=== PATIENT | female | born 1960 | race Caucasian/White ===

== ENCOUNTER 2017-03-29 22:46 | Emergency (ER) | payer OTHER | END 2017-03-29 23:10 | disposition left against medical advice (07) | LOC: ER 22:46 | DX: Z53.21 Procedure and treatment not carried out due to patient leaving prior to being seen by health care provider (principal) ==

== ENCOUNTER → 2017-07-02 | Outpatient (CLI) | payer OTHER ==
--- NOTE | 2017-07-02 15:37 | RADIOLOGY REPORT (SQ) ---
EXAM DESCRIPTION: CT HEAD COMBO COMPLETED DATE/TIME: 07/02/2017 3:28 pm REASON FOR STUDY: G43.909 MIGRAINE, UNSP, NOT INTRACTABLE, WITHOUT STATUS MIGRAINOSUS G45.9 G43.909 MIGRAINE, UNSP, NOT INTRACTABLE, WITHOUT STATUS MIGR G45.9 TRANSIENT CEREBRAL ISCHEMIC ATTACK, UNSP ECIFIED R41.3 OTHER AMNESIA COMPARISON: None. TECHNIQUE: Axial images acquired through the brain without and with intravenous contrast. Images re viewed with bone, brain and subdural windows. Images stored on PACS. All CT scanners at this facility use dose modulation, iterative reconstruction, and/or weight based d osing when appropriate to reduce radiation dose to as low as reasonably achievable (ALARA). [facility]: Dose Right [facility]: CareDose [facility]: Dose Right [facility]: Teradose 4D [facility]: [facility] CONTRAST TYPE AND DOSE: contrast/concentration: Isovue 370.00 mg/ml; Total Contrast Delivered: 50.0 ml; Total Saline Delivered: 55.0 ml RENAL FUNCTION: GFR > 60. RADIATION DOSE: CT Rad equipment meets quality standard of care and radiation dose reduction techniq ues were employed. CTDIvol: 49.0 mGy. DLP: 1566 mGy-cm.. LIMITATIONS: None. FINDINGS: VENTRICLES: Normal size and contour. CEREBRUM: No masses. No hemorrhage. No midline shift. Normal wong/white matter differentiation. No ev idence for acute infarction. No enhancing lesions. CEREBELLUM: No masses. No hemorrhage. No alteration of density. No evidence for acute infarction. No enhancing lesions. EXTRA-AXIAL SPACES: No fluid collections. No enhancing lesions. ORBITS AND GLOBE: No intra- or extraconal masses. Normal contour of globe without masses. CALVARIUM: No fracture. PARANASAL SINUSES: No fluid or mucosal thickening. SOFT TISSUES: No mass or hematoma. OTHER: No other significant finding. IMPRESSION: NORMAL BRAIN CT WITHOUT AND WITH CONTRAST. EVIDENCE OF ACUTE STROKE: NO. TECHNICAL DOCUMENTATION: JOB ID: [id number] Quality ID # [id number]: Final reports with documentation of one or more dose reduction techniques (e.g., Au tomated exposure control, adjustment of the mA and/or kV according to patient size, use of iterative reconstruction technique) 2010 [employer]- All Rights Reserved
--- NOTE | 2017-07-02 16:56 | RADIOLOGY REPORT (SQ) ---
EXAM DESCRIPTION: CAROTID DOPPLER COMPLETED DATE/TIME: 07/02/2017 4:27 pm REASON FOR STUDY: MIGRAINE, TIA G43.909 MIGRAINE, UNSP, NOT INTRACTABLE, WITHOUT STATUS MIGR G45.9 TRANSIENT CEREBRAL ISCHEMIC ATTACK, UNSPECIFIED R41.3 OTHER AMNESIA COMPARISON: CT brain 07/02/2017 TECHNIQUE: Grayscale ultrasound, Doppler velocity and spectra, and color Doppler images acquired of the extra-cranial carotid and vertebral arteries. Images stored on PACS. LIMITATIONS: None. FINDINGS: RIGHT CAROTID CCA Velocities: Within normal limits. ICA Velocities Peak systolic 1.0 m/s. End diastolic 0.27 m/s. Proximal ICA/CCA peak systolic ratio 1.1. Minimal calcific plaque at the right carotid bifurcation without flow significant stenosis LEFT CAROTID CCA Velocities: Within normal limits. ICA Velocities Peak systolic 1.0 m/s. End diastolic 0.26 m/s. Proximal ICA/CCA peak systolic ratio 1.0. Minimal calcific plaque at the left carotid bifurcation without flow significant stenosis. VERTEBRAL ARTERIES: Antegrade flow. Normal waveforms. SUBCLAVIAN ARTERIES: Not evaluated OTHER: No other significant finding. IMPRESSION: NO HEMODYNAMICALLY SIGNIFICANT STENOSIS. COMMENT: Quality ID #[id number]: Velocity criteria are extrapolated from the diameter data as defined by t he Society of Radiologists in Ultrasound Consensus Conference. Radiology 2003: 229; 340-346. TECHNICAL DOCUMENTATION: JOB ID: [id number]- All Rights Reserved
== END ==
LOC: RAD 15:08
PROVIDERS: ATTEND Specialist
DX: G43.909 Migraine, unspecified, not intractable, without status migrainosus (principal); G45.9 Transient cerebral ischemic attack, unspecified; R41.3 Other amnesia
CPT/HCPCS: 70470; 93880

== ENCOUNTER 2017-12-03 18:13 | Emergency (ER) | payer SELFPAY ==
[2017-12-03 18:30] LABS: ABSOLUTE EOSINOPHILS # (AUTO) 0.1 10^3/uL (0.0-0.6); ABSOLUTE LYMPHOCYTES (AUTO) 2.9 10^3/uL (0.5-4.7); ABSOLUTE MONOCYTES (AUTO) 0.4 10^3/uL (0.1-1.4); ABSOLUTE NEUT (AUTO) 3.7 10^3/uL (1.7-8.2); BASOPHILS % (AUTO) 0.5 % (0-2); HEMATOCRIT 39.5 % (36.0-47.0); HEMOGLOBIN 12.8 g/dL (12.0-15.5); LYMPHOCYTES % (AUTO) 40.5 % (13-45); MEAN CORPUSCULAR HEMOGLOBIN 24.3 pg (27.0-33.4); MEAN CORPUSCULAR HGB CONC 32.3 g/dL (32.0-36.0); MEAN CORPUSCULAR VOLUME 75 fl (80-97); PLATELET COUNT 263 10^3/uL (150-450); RED BLOOD COUNT 5.24 10^6/uL (3.72-5.28); RED CELL DISTRIBUTION WIDTH 16.8 % (11.5-14.0); TOTAL CELLS COUNTED % (AUTO) 100 %; WHITE BLOOD COUNT 7.2 10^3/uL (4.0-10.5)
[2017-12-03 18:36] LABS: INTERNATIONAL RATION (INR) 0.85
[2017-12-03 18:37] LABS: PARTIAL THROMBOPLASTIN TIME 24.4 SEC (23.5-35.8)
[2017-12-03 18:39] LABS: PROTHROMBIN TIME 12.1 SEC (11.4-15.4)
[2017-12-03 18:45] LABS: ALANINE AMINOTRANSFERASE 24 U/L (9-52); ALBUMIN 4.4 g/dL (3.5-5.0); ALKALINE PHOSPHATASE 70 U/L (38-126); ANION GAP 14 (5-19); ASPARTATE AMINO TRANSFERASE 29 U/L (14-36); BILIRUBIN,DIRECT 0.5 mg/dL (0.0-0.4); BILIRUBIN,TOTAL 0.5 mg/dL (0.2-1.3); BLOOD UREA NITROGEN 16 mg/dL (7-20); CALCIUM 10.6 mg/dL (8.4-10.2); CARBON DIOXIDE 24 mmol/L (22-30); CHLORIDE 104 mmol/L (98-107); CREATINE KINASE 126 U/L (30-135); GLUCOSE 195 mg/dL (75-110); POTASSIUM 5.7 mmol/L (3.6-5.0); SODIUM 142.2 mmol/L (137-145); TOTAL PROTEIN 7.5 g/dL (6.3-8.2)
--- NOTE | 2017-12-03 18:45 | ER Document Report ---
ED General - General Chief Complaint: S/S of Possible Stroke Stated Complaint: POSSIBLE STROKE SYMPTOMS Time Seen by Provider: 12/03/17 18:19 Mode of Arrival: Medic Information source: Patient, Relative, Emergency Med Personnel Notes: 56-year-old female with hypertension, hyperlipidemia, type 2 diabetes and previous CVA in 2001 presents with complaint of headache and left sided facial numbness, left arm numbness, left leg numbness that occurred 2 hours prior to arrival. Patient states that she has these episodes frequently. Last episode was 3 weeks prior to arrival. She denies any recent illnesses. She has no physical complaints at this time. Patient does take Plavix. TRAVEL OUTSIDE OF THE [place] IN LAST 30 DAYS: No - HPI Onset: Just prior to arrival Onset/Duration: Gradual Quality of pain: No pain Associated symptoms: None Exacerbated by: Denies Relieved by: Denies Similar symptoms previously: Yes Recently seen / treated by doctor: No - Related Data Allergies/Adverse Reactions: codeine [Codeine] Allergy (Verified 12/03/17 18:16) Nausea oxycodone [Oxycodone] Allergy (Verified 12/03/17 18:16) Nausea Sulfa (Sulfonamide Antibiotics) Allergy (Verified 12/03/17 18:16) rash Past Medical History - General Information source: Patient - Social History Smoking Status: Former Smoker Frequency of alcohol use: None Drug Abuse: None Lives with: Family Family History: Reviewed & Not Pertinent Patient has suicidal ideation: No Patient has homicidal ideation: No - Past Medical History Cardiac Medical History: Reports: Hx Hypercholesterolemia, Hx Hypertension Denies: Hx Coronary Artery Disease, Hx Heart Attack Pulmonary Medical History: Reports: Hx Bronchitis, Hx Pneumonia Denies: Hx Asthma, Hx COPD, Hx Tuberculosis Neurological Medical History: Reports: Hx Cerebrovascular Accident - 2001. Denies: Hx Seizures Endocrine Medical History: Reports: Hx Diabetes 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, Hx Hypothyroidism GI Medical History: Reports: Hx Gastroesophageal Reflux Disease Musculoskeltal Medical History: Reports Hx Arthritis Psychiatric Medical History: Reports: Hx Depression Past Surgical History: Reports: Hx Section, Hx Cholecystectomy, Hx Nose Surgery, Hx Tonsillectomy. Denies: Hx Pacemaker - Immunizations Hx Diphtheria, Pertussis, Tetanus Vaccination: Yes Review of Systems - Review of Systems Notes: REVIEW OF SYSTEMS: CONSTITUTIONAL : Denies fever, chills, or sweats. Denies recent illness. Denies weight loss, recent hospitalizations. EENT: Denies visula changes, eye pain. Denies nasal or sinus congestion or discharge. Denies sore throat, oral lesions, difficulty swallowing. CARDIOVASCULAR: Denies chest pain. Denies palpitations or racing or irregular heart beat. Denies lower extremity edema. RESPIRATORY: Denies cough, cold, or chest congestion. Denies shortness of breath, difficulty breathing, or wheezing. GASTROINTESTINAL: Denies abdominal pain or distention. Denies nausea, vomiting , or diarrhea. Denies blood in vomitus, stools, or per rectum. Denies black, tarry stools. Denies constipation. GENITOURINARY: Denies difficulty urinating, painful urination, burning, frequency, blood in urine, or vaginal discharge. MUSCULOSKELETAL: Denies back or neck pain or stiffness. Denies joint pain or swelling. SKIN: Denies rash, lesions or sores. HEMATOLOGIC : Denies easy bruising or bleeding. LYMPHATIC: Denies swollen, enlarged glands. NEUROLOGICAL: Denies confusion or altered mental status. Denies passing out or loss of consciousness. Denies dizziness or lightheadedness. Denies headache. Denies weakness or paralysis or loss of use of either side. Denies problems with gait or speech. Minutes to sensory loss, numbness, and tingling. Denies seizures. PSYCHIATRIC: Denies anxiety or stress. Denies depression, suicidal ideation, or homicidal ideation. Physical Exam - Vital signs Vitals: Pulse Resp BP Pulse Ox 94 11 L 154/81 H 97 12/03/17 18:14 12/03/17 18:14 12/03/17 18:14 12/03/17 18:14 - Notes Notes: PHYSICAL EXAMINATION: GENERAL: Well-appearing, well-nourished and in no acute distress. HEAD: Atraumatic, normocephalic. EYES: Pupils equal round and reactive to light, extraocular movements intact, conjunctiva are normal. ENT: Nares patent, oropharynx clear without exudates. Moist mucous membranes. NECK: Normal range of motion, supple without lymphadenopathy LUNGS: Breath sounds clear to auscultation bilaterally and equal. No wheezes rales or rhonchi. HEART: Regular rate and rhythm without murmurs ABDOMEN: Soft, nontender, nondistended abdomen. No guarding, no rebound. No masses appreciated. Female : deferred Musculoskeletal: Normal range of motion, no pitting or edema. No cyanosis. NEUROLOGICAL: Cranial nerves grossly intact. Normal speech, normal gait. Decreased sensation of the side of the face and left upper extremity. NIH 1 for mild sensory loss. PSYCH: Normal mood, normal affect. SKIN: Warm, Dry, normal turgor, no rashes or lesions noted. Course - Re-evaluation Re-evalutation: 12/04/17 00:16 Laboratory 12/03/17 12/03/17 12/03/17 18:20 18:20 18:20 WBC 7.2 RBC 5.24 Hgb 12.8 Hct 39.5 MCV 75 L MCH 24.3 L MCHC 32.3 RDW 16.8 H Plt Count 263 Seg Neutrophils % 51.0 Lymphocytes % 40.5 Monocytes % 6.0 Eosinophils % 2.0 Basophils % 0.5 Absolute Neutrophils 3.7 Absolute Lymphocytes 2.9 Absolute Monocytes 0.4 Absolute Eosinophils 0.1 Absolute Basophils 0.0 PT 12.1 INR 0.85 APTT 24.4 Sodium 142.2 Potassium 5.7 H Chloride 104 Carbon Dioxide 24 Anion Gap 14 BUN 16 Creatinine 0.71 Est GFR ( Amer) > 60 Est GFR (Non-Af Amer) > 60 Glucose 195 H POC Glucose Calcium 10.6 H Total Bilirubin 0.5 Direct Bilirubin 0.5 H Neonat Total Bilirubin Not Reportable Neonat Direct Bilirubin Not Reportable Neonat Indirect Bili Not Reportable AST 29 ALT 24 Alkaline Phosphatase 70 Creatine Kinase 126 CK-MB (CK-2) Troponin I Total Protein 7.5 Albumin 4.4 12/03/17 12/03/17 18:20 18:37 WBC RBC Hgb Hct MCV MCH MCHC RDW Plt Count Seg Neutrophils % Lymphocytes % Monocytes % Eosinophils % Basophils % Absolute Neutrophils Absolute Lymphocytes Absolute Monocytes Absolute Eosinophils Absolute Basophils PT INR APTT Sodium Potassium Chloride Carbon Dioxide Anion Gap BUN Creatinine Est GFR ( Amer) Est GFR (Non-Af Amer) Glucose POC Glucose 165 H Calcium Total Bilirubin Direct Bilirubin Neonat Total Bilirubin Neonat Direct Bilirubin Neonat Indirect Bili AST ALT Alkaline Phosphatase Creatine Kinase CK-MB (CK-2) 1.15 Troponin I < 0.012 Total Protein Albumin Chest X-Ray 12/03/17 18:15 IMPRESSION: NO ACUTE RADIOGRAPHIC FINDING IN THE CHEST. Head CT 12/03/17 18:15 IMPRESSION: NORMAL BRAIN CT WITHOUT CONTRAST. EVIDENCE OF ACUTE STROKE: NO. Head MRI 12/03/17 18:42 IMPRESSION: NORMAL MRI OF THE BRAIN WITHOUT INTRAVENOUS GADOLINIUM CONTRAST. EVIDENCE OF ACUTE STROKE: NO. 56-year-old female presents with complaint of headache and left-sided facial, arm and leg paresthesias. Upon arrival vital signs reviewed and within normal meds. Patient does not appear toxic or dehydrated. She is in no acute distress. NIH was performed and 1 for reported decreased sensation. CT was obtained and showed no acute process. MRI was obtained and also showed no evidence of stroke. On reevaluation patient states headache and numbness have resolved. Patient is currently on Plavix, aspirin and does have neurology follow-up. Patient was found to have a potassium of 5.7. No associated EKG changes. Patient was administered insulin, dextrose and calcium during her ED course. IV fluids and Tylenol were administered. Repeat potassium pending. 12/04/17 00:17 12/04/17 00:39 Repeat EKG obtained and shows no peak T waves, normal QRS. QTC within normal limits. 12/04/17 00:52 Repeat potassium now within normal limits. Patient is symptom-free and comfortable with discharge home. Patient provided the opportunity to ask questions, and express concerns. Discharge instructions discussed. Patient is agreeable with discharge home. Return indications explained and discussed with the patient who displays understanding. Patient encouraged to return to the emergency department immediately with any concerns. - Vital Signs Vital signs: Temp Pulse Resp BP Pulse Ox 81 18 138/78 H 96 12/03/17 21:00 12/03/17 21:00 12/03/17 23:55 12/03/17 23:55 - Laboratory Result Diagrams: 12/03/17 18:20 12/04/17 00:15 Laboratory results interpreted by me: 12/03/17 12/03/17 12/03/17 18:20 18:20 18:37 MCV 75 L MCH 24.3 L RDW 16.8 H Potassium 5.7 H Glucose 195 H POC Glucose 165 H Calcium 10.6 H Direct Bilirubin 0.5 H - Diagnostic Test Radiology reviewed: Image reviewed, Reports reviewed Discharge - Discharge Clinical Impression: Arm paresthesia, left, Leg paresthesia, Hyperkalemia Headache Qualifiers: Headache type: unspecified Headache chronicity pattern: episodic headache Intractability: not intractable Qualified Code(s): R51 - Headache Condition: Good Disposition: HOME, SELF-CARE Instructions: Headache ([facility]), Numbness or Paresthesia ([facility]) Additional Instructions: Please follow-up with your neurologist in the next 3-5 days. Forms: Elevated Blood Pressure ED NIH Stroke Scale - NIH Stroke Scale When completed:: Before Alteplase *: 1. NIH scale should be completed with appropriate accompanying assessment tools. *: 2. The NIH should reflect what the patient is capable of doing and should not be coached by the clinician. 1a. Level of Consciousness: 0=Alert;keenly responsive -: 1=Drowsy -: 2=Obtunded -: 3=Coma/unresponsive or reflex to noxious stimuli. 1a. Responses: 0 1b. Orientation Questions: a. What month is it? -: b. How old are you? -: 0=Answers both questions correctly. -: 1=Answers one question correctly or patient is intubated or has orotracheal trauma. -: 2=Answers neither question correctly. 1b. Responses: 0 1c. Response to commands: a. Open and close eyes? -: b. Hydraulic Mechanic and release hand? -: Credit is given despite weakness. Demonstration of task is permitted. Substitute command if hands cannot be used. -: 0=Performs both tasks correctly -: 1=Performs one task correctly -: 2=Performs neither task correctly 1c. Responses: 0 2. Gaze: Establish eye contact and instruct patient to "Follow my finger" -: 0=Normal -: 1=Partial gaze palsy. Gaze is abnormal in one or both eyes, but where forced deviation or total gaze paresis is not present. -: 2=Forced deviation or total gaze paresis. 2. Responses: 0 3. Visual Cordero: Sees fingers in all four quadrants. -: 0=No visual loss. -: 1=Partial hemianopsia. -: 2=Complete hemianopsia. -: 3=Bilateral hemianopsia (including Cortical blindness) 3. Responses: 0 4. Facial Movement: Instruct patient to: -: a. Show me your teeth -: b. Raise your eyebrows -: c. Close your eyes -: d. Smile -: 0=Normal symmetrical movement -: 1=Minor paralysis (flattened nasolabial fold, asymmetry on smiling). -: 2=Partial paralysis (total or near total paralysis of lower face). -: 3=Complete paralysis of upper and lower face 4. Responses: 0 5. Motor functions (left arm): Alternate sides and extend each arm with palms down (90 degrees if sitting or 45 degrees for supine). -: 0=No drift;limb holds for full 10 seconds. -: 1=Drift; limb holds but drifts down before full 10 seconds, but does not hit bed. -: 2=Some effort against gravity; limb cannot get to or maintain position. -: 3=No effort against gravity; limb falls. -: 4=No movement. -: UN=Amputation, joint fusion, explain in comments. 5. Responses (left arm): 0 5. Motor Functions (right arm): Alternate sides and extend each arm with palms down (90 degrees if sitting or 45 degrees for supine). -: 0=No drift;limb holds for full 10 seconds. -: 1=Drift; limb holds but drifts down before full 10 seconds, but does not hit bed. -: 2=Some effort against gravity; limb cannot get to or maintain position. -: 3=No effort against gravity; limb falls. -: 4=No movement. -: UN=Amputation, joint fusion, explain in comments. 5. Responses (right arm): 0 6. Motor Functions (left leg): With patient lying supine, alternate sides and extend each leg (30 degrees always while supine). -: 0=No drift, leg holds position for full 5 seconds -: 1=Drift; leg falls before full 5 seconds but does not hit bed. -: 2=Some effort against gravity, leg falls to bed but some effort against gravity. -: 3=No effort against gravity, leg falls to bed immediately. -: 4=No movement. -: UN=Amputation, joint fusion; explain in comments. 6. Responses (left leg): 0 6. Motor Functions (right leg): With patient lying supine, alternate sides and extend each leg (30 degrees always while supine). -: 0=No drift, leg holds position for full 5 seconds -: 1=Drift; leg falls before full 5 seconds but does not hit bed. -: 2=Some effort against gravity, leg falls to bed but some effort against gravity. -: 3=No effort against gravity, leg falls to bed immediately. -: 4=No movement. -: UN=Amputation, joint fusion; explain in comments. 6. Responses (right leg): 0 7. Limb Ataxia: With eyes open instruct patient to: -: a. "Touch your finger to your nose". -: b. "Touch your heel to your archer" -: 0=Absent -: 1=Present in one limb. -: 2=Present in two limbs. -: UN=Amputation or joint fusion; explain in comments. 7. Responses: 0 8. Sensory: Test sensation using pinprick or noxious stimuli. Test as many body parts as possible. -: 0=Normal;no sensory loss -: 1=Mile to moderate sensory loss (patient feels pin prick but is less sharp on affected side). -: 2=Severe or total sensory loss. 8. Responses: 1 9. Best Language: Instruct patient to: -: a. "Describe what you see in this picture." -: b. "Name the items in this picture." -: c. "Read these sentences." -: 0=No aphasia, normal -: 1=Mild to moderate aphasia. -: 2=Severe aphasia -: 3=Mute, global aphasia, no usable speech or auditory comprehension. 9. Responses: 0 10. Articulation, Dysarthia: Instruct patient to: -: "Read these words" or "Repeat these words" -: 0=Normal -: 1=Mild to moderate; patient may slur some words but can be understood without difficulty. -: 2=Severe; patients speech so slurred as to be unintelligible in the absence of dysphasia. -: UN=Intubated or other physical barrier, explain in comments. 10. Responses: 0 11. Extinction or inattention: 0=No abnormality -: 1= Visual, tactile, auditory, spatial, or personal inattention or extinction to bilateral simulation in one or the sensory modalities. -: 2=Profound marylu-inattention or marylu-inattention to more than one modality; does not recognize own hand. 11. Responses: 0 Total Score: 1
--- NOTE | 2017-12-03 18:49 | RADIOLOGY REPORT (SQ) ---
EXAM DESCRIPTION: CT HEAD WITHOUT COMPLETED DATE/TIME: 12/03/2017 6:21 pm REASON FOR STUDY: bed 9 stroke alert COMPARISON: 07/02/2017 TECHNIQUE: Axial images acquired through the brain without intravenous contrast. Images reviewed wi th bone, brain and subdural windows. Additional sagittal and coronal reconstructions were generated. Images stored on PACS. All CT scanners at this facility use dose modulation, iterative reconstruction, and/or weight based d osing when appropriate to reduce radiation dose to as low as reasonably achievable (ALARA). [facility]: Dose Right [facility]: CareDose [facility]: Dose Right [facility]: Teradose 4D [facility]: Smart Waze RADIATION DOSE: CT Rad equipment meets quality standard of care and radiation dose reduction techniq ues were employed. CTDIvol: 53.2 mGy. DLP: 937 mGy-cm. mGy. LIMITATIONS: None. FINDINGS: VENTRICLES: Normal size and contour. CEREBRUM: No masses. No hemorrhage. No midline shift. No evidence for acute infarction. Normal gra y/white matter differentiation. No areas of low density in the white matter. CEREBELLUM: No masses. No hemorrhage. No alteration of density. No evidence for acute infarction. EXTRAAXIAL SPACES: No fluid collections. No masses. ORBITS AND GLOBE: No intra- or extraconal masses. Normal contour of globe without masses. CALVARIUM: No fracture. PARANASAL SINUSES: No fluid or mucosal thickening. SOFT TISSUES: No mass or hematoma. OTHER: No other significant finding. IMPRESSION: NORMAL BRAIN CT WITHOUT CONTRAST. EVIDENCE OF ACUTE STROKE: NO. COMMENT: Findings were discussed with the ordering physician at 1843 hours on this date. Quality ID # [id number]: Final reports with documentation of one or more dose reduction techniques (e.g., Au tomated exposure control, adjustment of the mA and/or kV according to patient size, use of iterative reconstruction technique) TECHNICAL DOCUMENTATION: JOB ID: [id number] [employer]- All Rights Reserved Reading location - IP/workstation name: [email or web address]
[2017-12-03 18:56] LABS: CREATINE KINASE MB 1.15 ng/mL (<4.55)
[2017-12-03 18:58] LABS: TROPONIN I < 0.012 ng/mL
--- NOTE | 2017-12-03 19:08 | RADIOLOGY REPORT (SQ) ---
EXAM DESCRIPTION: CHEST SINGLE VIEW COMPLETED DATE/TIME: 12/03/2017 6:38 pm REASON FOR STUDY: bed 9 stroke alert COMPARISON: 09/17/2012 EXAM PARAMETERS: NUMBER OF VIEWS: One view. TECHNIQUE: Single frontal radiographic view of the chest acquired. RADIATION DOSE: NA LIMITATIONS: None. FINDINGS: LUNGS AND PLEURA: No opacities, masses or pneumothorax. No pleural effusion. MEDIASTINUM AND HILAR STRUCTURES: No masses. Contour normal. HEART AND VASCULAR STRUCTURES: Heart normal in size. Normal vasculature. BONES: No acute findings. HARDWARE: None in the chest. OTHER: No other significant finding. IMPRESSION: NO ACUTE RADIOGRAPHIC FINDING IN THE CHEST. TECHNICAL DOCUMENTATION: JOB ID: [id number] [employer]- All Rights Reserved Reading location - IP/workstation name: [email or web address]
--- NOTE | 2017-12-03 22:03 | RADIOLOGY REPORT (SQ) ---
EXAM DESCRIPTION: MRI HEAD WITHOUT COMPLETED DATE/TIME: 12/03/2017 9:51 pm REASON FOR STUDY: left sided paresthesias COMPARISON: None. TECHNIQUE: Multiplanar imaging includes non-contrasted T1, T2, FLAIR, and diffusion with ADC map seq uences. Images stored on PACS. LIMITATIONS: None. FINDINGS: ANATOMY: No anomalies. Normal vascular flow voids. Pituitary fossa normal. CSF SPACES: Normal in size and contour. No hemorrhage. CEREBRUM: Sulci and gyri normal in size and contour. Normal white matter signal on FLAIR imaging. No evidence of hemorrhage, mass, or extraaxial fluid collection. POSTERIOR FOSSA: No signal alteration. No hemorrhage. No edema, masses or mass effect. Internal joselin tory canals, cerebello-pontine angles, mastoids normal. DIFFUSION IMAGING: Negative for acute or sub-acute infarction. ORBITS: No masses. Globes normal. PARANASAL SINUSES: No fluid levels. Mucosa normal. OTHER: No other significant finding. IMPRESSION: NORMAL MRI OF THE BRAIN WITHOUT INTRAVENOUS GADOLINIUM CONTRAST. EVIDENCE OF ACUTE STROKE: NO. TECHNICAL DOCUMENTATION: JOB ID: [id number] [employer]- All Rights Reserved Reading location - IP/workstation name: [email or web address]
[2017-12-03] MEDS ORDERED: ACETAMINOPHEN 325 MG TABLET PO ONE (22:09)
[2017-12-03] MEDS ORDERED: CALCIUM GLUCONATE 1000 MG/10 ML INJ IV ONE (22:16)
[2017-12-03] MEDS ORDERED: DEXTROSE 50%-WATER 25 GM/50 ML DISP.SYRIN IV ONE (22:16)
[2017-12-03] MEDS ORDERED: INSULIN REG, HUMAN 100 UNIT/ML 3 ML VIAL (PYX) IV ONE (22:16)
[2017-12-03] MEDS ORDERED: NORMAL SALINE 1000 ML 1,000 ML IV ONE (22:22)
[2017-12-04 02:03] VITALS: BP 119/73
--- NOTE | 2017-12-04 07:43 | EKG REPORT ---
SEVERITY:- ABNORMAL ECG - SINUS RHYTHM INFERIOR INFARCT, AGE INDETERMINATE : Confirmed by: Rufus Ruiz MD 04-Dec-2017 07:43:08
--- NOTE | 2017-12-04 07:43 | EKG REPORT ---
SEVERITY:- NORMAL ECG - SINUS RHYTHM : Confirmed by: Rufus Ruiz MD 04-Dec-2017 07:42:47
== END 2017-12-04 02:05 | disposition home or self-care (01) ==
LOC: ER 18:13
DX: R51 Headache (principal); R20.0 Anesthesia of skin; E87.5 Hyperkalemia; I10 Essential (primary) hypertension; E78.5 Hyperlipidemia, unspecified; E11.9 Type 2 diabetes mellitus without complications; Z86.73 Personal history of transient ischemic attack (TIA), and cerebral infarction without residual deficits; Z87.891 Personal history of nicotine dependence; Z79.4 Long term (current) use of insulin; Z79.84 Long term (current) use of oral hypoglycemic drugs; R29.701 NIHSS score 1
CPT/HCPCS: 93005 ×2; 99285; 96375; 96365; 36415; 82553; 82962; 82550; 84132; 85025; 85610; 85730; 80053; 84484; 70551; 71045; 70450; 93010 ×2; J0610; J3490; J1815; J7030

== ENCOUNTER → 2019-10-27 | Outpatient (CLI) | payer OTHER ==
--- NOTE | 2019-10-27 15:05 | ER RDC ASSESSMENT REPORT ---
Intake - In the Last 14 days Have you traveled outside [place]?: No Have you been in close contact with someone CONFIRMED: No Worked in Healthcare?: No - Symptoms Subjective Fever([place] feverish): No Chills: No Muscule Aches: No Runny Nose: Yes Sore Throat: Yes Cough (New or worsening chronic cough): Yes Shortness of breath: Yes Nausea or Vomiting: No --How many day(s)?: History of nausea and vomiting takes Zofran Headache: Yes Abdominal Pain: Yes Diarrhea(3 or more loose stools in last 24 hours): No - Do you have any of the following Chronic lung disease: Asthma or emphysema or COPD: Yes Chronic Lung Disease Comment: Patient reports had been diagnosed with tuberculosis this past summer Cystic Fibrosis: No Diabetes: Yes High Blood Pressure: Yes Cardiovascular Disease: Yes Chronic Kidney Disease: No Chronic Liver Disease: No Chronic blood disorder like Sickle Cell Disease: No Weak immune system due to disease or medication: Yes Immune System Comment: Medications for TB Neurologic condition that limits movement: No Neurological Condition Comment: History of a CVA in 2001 Developmental delay - Moderate to Severe: No Recent (within past 2 weeks) or current : No Morbid Obesity (>100 pounds over ideal weight): No Obesity Comment: Height 5 feet 3 inches weight 207 pounds - Objective Temperature: 98.7 F Pulse Rate: 94 Respiratory Rate: 20 Blood Pressure: 102/61 O2 Sat by Pulse Oximetry: 96 Objective: Given above, testing performed: If Testing Performed: Test Specimen Type Sent to General - General Information source: Patient Notes: Patient here for COVID testing reports PCP aware of patient's respiratory illness previous history of tuberculosis over the summer prefers patient to be tested for COVID reports shortness of breath different than usual. States has been given an inhaler Advair by PCP. Reports respiratory symptoms started over the summer and are not new. - Related Data Allergies/Adverse Reactions: codeine [Codeine] Allergy (Verified 12/03/17 18:16) Nausea oxycodone [Oxycodone] Allergy (Verified 12/03/17 18:16) Nausea Sulfa (Sulfonamide Antibiotics) Allergy (Verified 12/03/17 18:16) rash Past Medical History - General Information source: Patient - Social History Smoking Status: Never Smoker Family History: Reviewed & Not Pertinent - Past Medical History Cardiac Medical History: Reports: Hx Hypercholesterolemia, Hx Hypertension Denies: Hx Coronary Artery Disease, Hx Heart Attack Pulmonary Medical History: Reports: Hx Bronchitis, Hx Pneumonia Denies: Hx Asthma, Hx COPD, Hx Tuberculosis Neurological Medical History: Reports: Hx Cerebrovascular Accident - 2002. 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 Denies: Hx Pacemaker Physical Exam - General General appearance: Appears well, Alert In distress: None Notes: PHYSICAL EXAMINATION: GENERAL: Well-appearing and in no acute distress. HEAD: Atraumatic, normocephalic. EYES: sclera anicteric, conjunctiva are normal. ENT: nares patent. Moist mucous membranes. NECK: Normal range of motion, supple without lymphadenopathy LUNGS: CTAB and equal. No wheezes rales or rhonchi. Lung sounds clear resp even and unlabored. HEART: Regular rate and rhythm without murmurs ABDOMEN: Soft, nontender, normal bowel sounds, no guarding. EXTREMITIES: No cyanosis. NEUROLOGICAL: Normal speech. PSYCH: Normal mood, normal affect. SKIN: Warm, Dry, normal turgor, - Respiratory Breath sounds: Normal, Nonproductive cough - Dry cough occassionally noted with deep breath. Diagnostic Results Laboratory Results: Patient informed of negative rapid strep and negative rapid flu results. Pending strep culture pending COVID testing results. Patient provided instructions for COVID to include: As a person under investigation for Covid 19, the [place] department of Health and Human Services, division of public health advises you to adhere to the following guidance until your test results are reported to you. If your test result is positive, you will receive additional information from your provider and your local health department at that time. Remain at home until you are cleared by the health provider or public health authorities. Keep a log of visitors to your home, notify any visitors to your home of your isolation status. If you plan to move to a new address or leave the [facility], notify the local health department in your County. Call your doctor or seek care if you have an urgent medical need. Before seeking medical care, call ahead to get instructions from the provider before arriving at the medical office clinic or hospital. Notify them that you are being tested for the virus that causes Covid 19 so that arrangements can be made, as necessary, to prevent transmission to others in the healthcare setting. Next, notify the local health department in your county. If a medical emergency arises and you need to call 911, inform the first responders that you are being tested for the virus that causes Covid 19. Next, notify the local health department in your county. Patient Education/Counseling Counseling/Education: Patient presents with upper respiratory symptoms worrisome for possible Covid 19. Patient does not have emergency worring symptoms such as difficulty breathing, shortness of breath, chest pain, pressure, confusion or cyanosis. Patient appears suitable for discharge. Patient's vital signs are stable and patient is nontoxic in appearance. Good return precautions have been discussed with patient, patient verbalized understanding and is agreeable with discharge plan of care at this time. RDC Discharge - Discharge Clinical Impression: COVID - 19 SCREENING Upper respiratory infection Qualifiers: URI type: unspecified URI Qualified Code(s): J06.9 - Acute upper respiratory infection, unspecified Condition: Stable Disposition: Home; Selfcare
[2019-10-27 15:11] VITALS: BP 102/61
[2019-10-27 15:39] LABS: A TYPE INFLUENZA AG NEGATIVE (NEGATIVE); B INFLUENZA AG NEGATIVE (NEGATIVE)
== END ==
LOC: RDC 14:32
PROVIDERS: ATTEND Nurse Practitioner Family
DX: J06.9 Acute upper respiratory infection, unspecified (principal); Z20.828 Contact with and (suspected) exposure to other viral communicable diseases; R05 Cough; R06.02 Shortness of breath; J02.9 Acute pharyngitis, unspecified; R09.89 Other specified symptoms and signs involving the circulatory and respiratory systems; R51 Headache; R10.9 Unspecified abdominal pain; I10 Essential (primary) hypertension; E11.9 Type 2 diabetes mellitus without complications; Z79.4 Long term (current) use of insulin; Z86.11 Personal history of tuberculosis; E03.9 Hypothyroidism, unspecified; K21.9 Gastro-esophageal reflux disease without esophagitis; Z95.0 Presence of cardiac pacemaker
CPT/HCPCS: 87070; 87635; 87804; 87880; 99211

== ENCOUNTER → 2019-11-17 | Outpatient (CLI) | payer OTHER ==
--- NOTE | 2019-11-17 15:11 | RADIOLOGY REPORT (SQ) ---
EXAM DESCRIPTION: CHEST PA/LATERAL IMAGES COMPLETED DATE/TIME: 11/17/2019 2:53 pm REASON FOR STUDY: DYSPNEA, UNSPECIFIED,PERSONAL HISTORY OF LATENT TUBERCULOSIS INFECTION COMPARISON: 09/17/2012. EXAM PARAMETERS: NUMBER OF VIEWS: two views TECHNIQUE: Digital Frontal and Lateral radiographic views of the chest acquired. RADIATION DOSE: NA LIMITATIONS: none FINDINGS: LUNGS AND PLEURA: No opacities, masses or pneumothorax. No pleural effusion. MEDIASTINUM AND HILAR STRUCTURES: No masses or contour abnormalities. HEART AND VASCULAR STRUCTURES: Heart normal size. No evidence for failure. BONES: No acute findings. HARDWARE: None in the chest. OTHER: No other significant finding. IMPRESSION: NO SIGNIFICANT RADIOGRAPHIC FINDING IN THE CHEST. TECHNICAL DOCUMENTATION: JOB ID: [id number] 2010 [employer]- All Rights Reserved Reading location - IP/workstation name: [email or web address]
[2019-11-17 15:12] LABS: ABSOLUTE BASOPHILS # (AUTO) 0.1 10^3/uL (0.0-0.2); ABSOLUTE EOSINOPHILS # (AUTO) 0.2 10^3/uL (0.0-0.6); ABSOLUTE LYMPHOCYTES (AUTO) 2.2 10^3/uL (0.5-4.7); ABSOLUTE MONOCYTES (AUTO) 0.4 10^3/uL (0.1-1.4); ABSOLUTE NEUT (AUTO) 3.8 10^3/uL (1.7-8.2); BASOPHILS % (AUTO) 0.8 % (0-2); EOSINOPHILS % (AUTO) 2.9 % (0-6); HEMATOCRIT 34.3 % (36.0-47.0); HEMOGLOBIN 11.1 g/dL (12.0-15.5); LYMPHOCYTES % (AUTO) 33.2 % (13-45); MEAN CORPUSCULAR HEMOGLOBIN 22.1 pg (27.0-33.4); MEAN CORPUSCULAR HGB CONC 32.4 g/dL (32.0-36.0); MEAN CORPUSCULAR VOLUME 68 fl (80-97); PLATELET COUNT 276 10^3/uL (150-450); RED BLOOD COUNT 5.02 10^6/uL (3.72-5.28); RED CELL DISTRIBUTION WIDTH 17.2 % (11.5-14.0); SEGMENTED NEUTROPHILS % (AUTO) 57.1 % (42-78); TOTAL CELLS COUNTED % (AUTO) 100 %; WHITE BLOOD COUNT 6.6 10^3/uL (4.0-10.5)
[2019-11-17 15:44] LABS: ALBUMIN 4.4 g/dL (3.5-5.0); ALKALINE PHOSPHATASE 85 U/L (38-126); ANION GAP 13 (5-19); ASPARTATE AMINO TRANSFERASE 20 U/L (14-36); BILIRUBIN,TOTAL 0.6 mg/dL (0.2-1.3); BLOOD UREA NITROGEN 19 mg/dL (7-20); CALCIUM 10.2 mg/dL (8.4-10.2); CARBON DIOXIDE 22 mmol/L (22-30); CHLORIDE 98 mmol/L (98-107); GLUCOSE 236 mg/dL (75-110); POTASSIUM 4.6 mmol/L (3.6-5.0)
== END ==
LOC: OD 14:30
PROVIDERS: ATTEND Internal Medicine Pulmonary Disease
DX: R06.00 Dyspnea, unspecified (principal); R53.83 Other fatigue; Z86.15 Personal history of latent tuberculosis infection
CPT/HCPCS: 36415; 71046; 80053; 80074; 85025; 86225; 86235

== ENCOUNTER 2019-11-20 21:05 | Observation (INO) | payer OTHER ==
[2019-11-20 21:50] LABS: ABSOLUTE EOSINOPHILS # (AUTO) 0.3 10^3/uL (0.0-0.6); ABSOLUTE LYMPHOCYTES (AUTO) 2.5 10^3/uL (0.5-4.7); ABSOLUTE MONOCYTES (AUTO) 0.6 10^3/uL (0.1-1.4); ABSOLUTE NEUT (AUTO) 3.9 10^3/uL (1.7-8.2); BASOPHILS % (AUTO) 0.5 % (0-2); EOSINOPHILS % (AUTO) 3.9 % (0-6); HEMATOCRIT 30.4 % (36.0-47.0); LYMPHOCYTES % (AUTO) 34.1 % (13-45); MEAN CORPUSCULAR HEMOGLOBIN 22.3 pg (27.0-33.4); MEAN CORPUSCULAR HGB CONC 32.7 g/dL (32.0-36.0); MEAN CORPUSCULAR VOLUME 68 fl (80-97); MONOCYTES % (AUTO) 7.7 % (3-13); PLATELET COUNT 258 10^3/uL (150-450); RED BLOOD COUNT 4.47 10^6/uL (3.72-5.28); SEGMENTED NEUTROPHILS % (AUTO) 53.8 % (42-78); TOTAL CELLS COUNTED % (AUTO) 100 %; WHITE BLOOD COUNT 7.3 10^3/uL (4.0-10.5)
[2019-11-20 21:56] LABS: INTERNATIONAL RATION (INR) 0.95; PROTHROMBIN TIME 12.7 SEC (11.4-15.4)
[2019-11-20 22:08] LABS: ALBUMIN 3.9 g/dL (3.5-5.0); ALKALINE PHOSPHATASE 71 U/L (38-126); ANION GAP 8 (5-19); ASPARTATE AMINO TRANSFERASE 18 U/L (14-36); BILIRUBIN,TOTAL 0.3 mg/dL (0.2-1.3); BLOOD UREA NITROGEN 17 mg/dL (7-20); CARBON DIOXIDE 26 mmol/L (22-30); CHLORIDE 101 mmol/L (98-107); CREATINE KINASE 52 U/L (30-135); GLUCOSE 172 mg/dL (75-110); POTASSIUM 4.4 mmol/L (3.6-5.0); TOTAL PROTEIN 6.3 g/dL (6.3-8.2)
[2019-11-20 22:19] LABS: CREATINE KINASE MB 0.56 ng/mL (<4.55)
[2019-11-20 22:20] LABS: TROPONIN I < 0.012 ng/mL
--- NOTE | 2019-11-20 22:22 | RADIOLOGY REPORT (SQ) ---
EXAM DESCRIPTION: XR CHEST 1 VIEW COMPLETED DATE/TME: 11/20/2019 21:21 CLINICAL HISTORY: 58 years, Female, CHEST PAIN COMPARISON: Prior study from 11/17/2019 NUMBER OF VIEWS: One TECHNIQUE: Single frontal view of the chest was obtained LIMITATIONS: None. FINDINGS: Cardiac and mediastinal contours are stable. Bandlike opacity is noted about the right lung base, likely atelectasis or scar. Lungs are otherwise clear. No pleural effusion or pneumothorax. IMPRESSION: No acute disease. copyright 2010 [employer]- All Rights Reserved
[2019-11-21] MEDS ORDERED: GLUCAGON,HUMAN RECOMB 1 MG INJ IM PRN (00:43)
[2019-11-21] MEDS ORDERED: DEXTROSE 40% GEL 15 GM TUBE PO PRN ×2 (00:43)
[2019-11-21] MEDS ORDERED: DEXTROSE 50%-WATER 25 GM/50 ML DISP.SYRIN IV PRN ×2 (00:43)
[2019-11-21] MEDS ORDERED: NITROGLYCERIN 0.4 MG/TAB 25 TAB/BOTTLE SL PRN (00:44)
[2019-11-21] MEDS ORDERED: ACETAMINOPHEN 325 MG TABLET PO PRN (00:44)
[2019-11-21] MEDS ORDERED: MAG HYDROX/AL HYDROX/SIMETH SUSP 30 ML UDCUP PO PRN (00:44)
[2019-11-21] MEDS ORDERED: ATORVASTATIN CALCIUM 20 MG TABLET ONE (00:57)
[2019-11-21 01:02] LABS: ABSOLUTE RETICS # 0.073 10^6/uL (0.028-0.122); RETICULOCYTE COUNT (AUTO) 1.53 % (0.66-2.85)
[2019-11-21] MEDS ORDERED: ATORVASTATIN CALCIUM 40 MG TABLET PO ONE (01:15)
--- NOTE | 2019-11-21 01:41 | ER Document Report ---
Entered by STEPHAN VYAS SCRIBE 11/20/19 [id number] Acting as scribe for:BAN KELLER DO ED General - General Chief Complaint: Chest Pain Stated Complaint: CHEST PAIN Time Seen by Provider: 11/20/19 22:24 Mode of Arrival: Ambulatory Information source: Patient Notes: This 58 year old female patient presents to the emergency department today with complaints of chest pain which has been intermittent since but worse today. Patient states that she has also had associated left arm and left sided facial numbness with her chest pain. Patient states that her last stress test was over 10 years ago. Patient states her pain is exacerbated with movement and breathing. Patient also briefly mentions that she saw Dr. West on 11/16 (4 days ago) for to "make sure this was not pain coming from her lungs". Patient states that she went to see a allergist/immunologist physician on Friday who suggested she have a stress test and echo done. She was going to be scheduled as an outpatient but had pain tonight so came to the emergency department. TRAVEL OUTSIDE OF THE [place] IN LAST 30 DAYS: No - Related Data Allergies/Adverse Reactions: codeine [Codeine] Allergy (Verified 12/03/17 18:16) Nausea oxycodone [Oxycodone] Allergy (Verified 12/03/17 18:16) Nausea Sulfa (Sulfonamide Antibiotics) Allergy (Verified 12/03/17 18:16) rash Past Medical History - General Information source: Patient - Social History Smoking Status: Never Smoker Cigarette use (# per day): No Frequency of alcohol use: None Drug Abuse: None Lives with: Family Family History: Reviewed & Not Pertinent Patient has homicidal ideation: No - Past Medical History Cardiac Medical History: Reports: Hx Hypercholesterolemia, Hx Hypertension Pulmonary Medical History: Reports: Hx Bronchitis, Hx Pneumonia Neurological Medical History: Reports: Hx Cerebrovascular Accident - 2001 Endocrine Medical History: Reports: Hx Diabetes 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, Hx Hypothyroidism GI Medical History: Reports: Hx Gastroesophageal Reflux Disease Musculoskeletal Medical History: Reports Hx Arthritis Psychiatric Medical History: Reports: Hx Depression Past Surgical History: Reports: Hx Section, Hx Cholecystectomy, Hx Nose Surgery, Hx Tonsillectomy - Immunizations Hx Diphtheria, Pertussis, Tetanus Vaccination: Yes Review of Systems - Review of Systems Constitutional: No symptoms reported EENT: No symptoms reported Cardiovascular: See HPI, Chest pain Respiratory: No symptoms reported Gastrointestinal: No symptoms reported Genitourinary: No symptoms reported Female Genitourinary: No symptoms reported Musculoskeletal: No symptoms reported Skin: No symptoms reported Hematologic/Lymphatic: No symptoms reported Neurological/Psychological: See HPI, Numbness - left face and left arm -: Yes All other systems reviewed and negative Physical Exam - Vital signs Vitals: Temp 98 F 11/20/19 21:08 Interpretation: Normal - General General appearance: Appears well, Alert - HEENT Head: Normocephalic, Atraumatic Eyes: Normal Pupils: PERRL - Respiratory Respiratory status: No respiratory distress Chest status: Tender - Left chest wall tenderness but patient states pain is deeper. Breath sounds: Normal Chest palpation: Normal - Cardiovascular Rhythm: Regular Heart sounds: Normal auscultation Murmur: No - Abdominal Inspection: Normal Distension: No distension Bowel sounds: Normal Tenderness: Nontender Organomegaly: No organomegaly - Back Back: Normal, Nontender - Extremities General upper extremity: Normal inspection, Nontender, Normal color, Normal ROM, Normal temperature General lower extremity: Normal inspection, Nontender, Normal color, Normal ROM, Normal temperature, Normal weight bearing. No: Ned's sign - Neurological Neuro grossly intact: Yes Cognition: Normal Orientation: AAOx4 [place] Coma Scale Eye Opening: Spontaneous [place] Coma Scale Verbal: Oriented [place] Coma Scale Motor: Obeys Commands [place] Coma Scale Total: 15 Speech: Normal Motor strength normal: LUE, RUE, LLE, RLE Sensory: Normal - Psychological Associated symptoms: Normal affect, Normal mood - Skin Skin Temperature: Warm Skin Moisture: Dry Skin Color: Normal Course - Re-evaluation Re-evalutation: 11/21/19 00:42 Patient is a 58-year-old female who comes in complaining of chest pain. History of high blood pressure, high cholesterol, uncontrolled diabetes, obesity, TIA. Patient apparently saw a allergist/immunologist physician yesterday and was going to schedule her for a stress test. Patient did not have chest pain yesterday but she had a today. It is been intermittent but persistent today. States she had it while mopping. No acute changes on EKG. Troponin is negative. Repeat troponin pending. Spoke to Dr. Post who agrees to admit the patient to telemetry observation. 11/21/19 01:38 Repeat troponin negative. - Vital Signs Vital signs: Temp Pulse Resp BP Pulse Ox 98 F 77 15 118/53 L 96 11/20/19 21:13 11/20/19 21:13 11/21/19 00:51 11/21/19 00:51 11/21/19 00:51 - Laboratory Result Diagrams: 11/20/19 21:37 11/20/19 21:37 Laboratory results interpreted by me: 11/20/19 11/20/19 11/21/19 21:37 21:37 00:52 Hgb 10.0 L Hct 30.4 L MCV 68 L MCH 22.3 L RDW 17.0 H Sodium 135.0 L Glucose 172 H Hemoglobin A1c % 9.2 H - Diagnostic Test Radiology reviewed: Reports reviewed - EKG Interpretation by Me EKG shows normal: Sinus rhythm Rate: Normal Rhythm: NSR When compared to previous EKG there are: No significant change Discharge - Discharge Clinical Impression: Chest pain Qualifiers: Chest pain type: unspecified Qualified Code(s): R07.9 - Chest pain, unspecified Condition: Stable Disposition: ADMITTED OBSERVATION Admitting Provider: Sincere (Hospitalist) Unit Admitted: Telemetry I personally performed the services described in the documentation, reviewed and edited the documentation which was dictated to the scribe in my presence, and it accurately records my words and actions.
[2019-11-21 04:10] LABS: IRON(TIBC) 30.1 ug/dL (37-170)
--- NOTE | 2019-11-21 04:16 | PDOC H&P ---
History of Present Illness Admission Date/PCP: 11/21/19 00:53 NANDO FLYNN PA-C Patient complains of: Chest pain History of Present Illness: MARY BRAVO is a 58 year old female with a past medical history of hypertension, insulin-dependent diabetes, dyslipidemia, obesity, hypothyroidism, depression, anxiety and chest wall pain since 2011. She presents with 3 days of 4 out of 5 dull, intermittent chest pain radiating to the left shoulder alleviated by rest she is unable to identify exacerbating factors prompting her to seek evaluation at her air brush artist and her road mechanic to recommend follow-up in the emergency department. Initial work-up is unremarkable with exception to a microcytic anemia with a hemoglobin of 10 and hyperglycemia of 176. Denying recent cardiac stress test she is referred to the hospitalist for observation. Past Medical History Cardiac Medical History: Reports: Hyperlipidema, Hypertension Denies: Coronary Artery Disease, Myocardial Infarction Pulmonary Medical History: Reports: Bronchitis, Pneumonia Denies: Asthma, Chronic Obstructive Pulmonary Disease (COPD), Tuberculosis Neurological Medical History: Denies: Seizures Endocrine Medical History: Reports: Diabetes 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, Hypothyroidism GI Medical History: Reports: Gastroesophageal Reflux Disease Musculoskeltal Medical History: Reports: Arthritis Psychiatric Medical History: Reports: Depression, General Anxiety Disorder Hematology: Denies: Anemia Past Surgical History Past Surgical History: Reports: Section, Cholecystectomy, Tonsillectomy Denies: Pacemaker Social History Information Source: Patient, Emergency Med Personnel, [facility] Records Lives with: Family Smoking Status: Never Smoker Frequency of Alcohol Use: None Hx Recreational Drug Use: No Drugs: None Hx Prescription Drug Abuse: No Family History Parental Family History Reviewed: Yes Children Family History Reviewed: Yes Sibling(s) Family History Reviewed.: Yes Medication/Allergy Home Medications: Aspirin [Ecotrin 81 mg EC Tablet] 81 mg PO DAILY 12/09/11 Atorvastatin Calcium [Lipitor 40 Mg Tablet] 40 mg PO QHS 12/09/11 Celecoxib [Celebrex 200 Mg Capsule] 200 mg PO DAILY 12/09/11 Clopidogrel Bisulfate [Plavix 75 Mg Tablet] 75 mg PO DAILY 12/09/11 Duloxetine HCl [Cymbalta 30 Mg Capsule.Dr] 120 mg PO DAILY 12/09/11 Insulin Aspart [Novolog] 30 unit SQ AC 12/09/11 Insulin Glargine,Hum.rec.anlog [Lantus Solostar] 80 unit SQ BID 12/09/11 Levothyroxine Sodium [Synthroid 88 Mcg Tablet] 88 mcg PO DAILY 12/09/11 Lisinopril [Prinivil 40 mg Tablet] 40 mg PO DAILY 12/09/11 Zolpidem Tartrate [Edluar] 10 mg PO QHS 12/09/11 Butalb/Acetaminophen/Caffeine [Fioricet (50-325-40 mg) Tablet] 1 - 2 tab PO Q4H PRN 09/17/12 Canagliflozin [Invokana] 1 tab PO DAILY 12/16/14 Clonidine HCl [Clonidine HCl ER] 0.1 mg PO QHS 12/16/14 Liraglutide [Victoza 2-Connre] 0.6 mg SQ DAILY 12/16/14 Aa8/A-Carnit/Grap/Parnell/Rfv620 [Gabadone Capsule] 1 each PO BID 10/26/15 Aspirin [Aspirin 81 mg Chewable Tablet] 81 mg PO DAILY 10/26/15 Allergies/Adverse Reactions: codeine [Codeine] Allergy (Verified 12/03/17 18:16) Nausea oxycodone [Oxycodone] Allergy (Verified 12/03/17 18:16) Nausea Sulfa (Sulfonamide Antibiotics) Allergy (Verified 12/03/17 18:16) rash Review of Systems Constitutional: ABSENT: chills, fever(s), headache(s), weight gain, weight loss Eyes: ABSENT: visual disturbances Ears: ABSENT: hearing changes Cardiovascular: ABSENT: chest pain, dyspnea on exertion, edema, orthropnea, palpitations Respiratory: ABSENT: cough, hemoptysis Gastrointestinal: ABSENT: abdominal pain, constipation, diarrhea, hematemesis, hematochezia, nausea, vomiting Genitourinary: ABSENT: dysuria, hematuria Musculoskeletal: ABSENT: joint swelling Integumentary: ABSENT: rash, wounds Neurological: ABSENT: abnormal gait, abnormal speech, confusion, dizziness, focal weakness, syncope Psychiatric: ABSENT: anxiety, depression, homidical ideation, suicidal ideation Endocrine: ABSENT: cold intolerance, heat intolerance, polydipsia, polyuria Hematologic/Lymphatic: ABSENT: easy bleeding, easy bruising Physical Exam Vital Signs: Temp Pulse Resp BP Pulse Ox 97.7 F 94 17 107/56 L 94 11/21/19 02:26 11/21/19 02:26 11/21/19 02:26 11/21/19 02:26 11/21/19 02:26 Intake & Output 11/19/19 11/20/19 11/21/19 11:59 11:59 11:59 Weight 94.3 kg General appearance: PRESENT: no acute distress, well-developed, well-nourished Head exam: PRESENT: atraumatic, normocephalic Eye exam: PRESENT: conjunctiva pink, EOMI, PERRLA. ABSENT: scleral icterus Ear exam: PRESENT: normal external ear exam Mouth exam: PRESENT: moist, tongue midline Neck exam: ABSENT: carotid bruit, JVD, lymphadenopathy, thyromegaly Respiratory exam: PRESENT: clear to auscultation clemente. ABSENT: rales, rhonchi, wheezes Cardiovascular exam: PRESENT: RRR. ABSENT: diastolic murmur, rubs, systolic murmur Pulses: PRESENT: normal dorsalis pedis pul Vascular exam: PRESENT: normal capillary refill GI/Abdominal exam: PRESENT: normal bowel sounds, soft. ABSENT: distended, guarding, mass, organolmegaly, rebound, tenderness Rectal exam: PRESENT: deferred Extremities exam: PRESENT: full ROM. ABSENT: calf tenderness, clubbing, pedal edema Neurological exam: PRESENT: alert, awake, oriented to person, oriented to place, oriented to time, oriented to situation, CN II-XII grossly intact. ABSENT: motor sensory deficit Psychiatric exam: PRESENT: appropriate affect, normal mood. ABSENT: homicidal ideation, suicidal ideation Skin exam: PRESENT: dry, intact, warm. ABSENT: cyanosis, rash Results Laboratory Results: 11/20/19 21:37 11/20/19 21:37 11/20/19 11/20/19 11/21/19 21:37 21:37 00:52 WBC 7.3 RBC 4.47 Hgb 10.0 L Hct 30.4 L MCV 68 L MCH 22.3 L MCHC 32.7 RDW 17.0 H Plt Count 258 Seg Neutrophils % 53.8 Retic Count (auto) 1.53 Sodium 135.0 L Potassium 4.4 Chloride 101 Carbon Dioxide 26 Anion Gap 8 BUN 17 Creatinine 0.68 Est GFR ( Amer) > 60 Glucose 172 H Calcium 10.0 Transferrin Total Bilirubin 0.3 AST 18 Alkaline Phosphatase 71 Total Protein 6.3 Albumin 3.9 TSH 05/10/20 05/10/20 00:52 00:52 WBC RBC Hgb Hct MCV MCH MCHC RDW Plt Count Seg Neutrophils % Retic Count (auto) Sodium Potassium Chloride Carbon Dioxide Anion Gap BUN Creatinine Est GFR ( Amer) Glucose Calcium Transferrin 340.58 Total Bilirubin AST Alkaline Phosphatase Total Protein Albumin TSH 0.27 L 11/20/19 11/20/19 11/21/19 21:37 21:37 00:34 Creatine Kinase 52 CK-MB (CK-2) 0.56 Troponin I < 0.012 < 0.012 Impressions: Chest X-Ray 11/20/19 21:21 IMPRESSION: No acute disease. copyright 2010 [employer]- All Rights Reserved Assessment and Plan - Diagnosis (1) Anemia Qualifiers: Anemia type: iron deficiency Is this a current diagnosis for this admission?: Yes Plan: Follow-up anemia labs and CBC (2) Diabetes Is this a current diagnosis for this admission?: Yes Plan: Continue outpatient regiment, follow-up A1c, (3) Chest pain Qualifiers: Chest pain type: unspecified Qualified Code(s): R07.9 - Chest pain, unspecified Is this a current diagnosis for this admission?: Yes Plan: Atypical chest pain though the patient's pain is atypical there are multiple risk factors for coronary artery disease and subsequently will observe and evaluation of acute coronary syndrome versus coronary artery disease with anginal equivalents. Cardiac monitoring blood pressure Q6 hours ,TSH, lipid profile, serial cardiac enzymes and cardiac stress test - Time Time Spent with patient: 25-34 minutes
[2019-11-21 04:47] LABS: FERRITIN 6.24 ng/mL (11.1-264.0)
[2019-11-21] MEDS: INSULIN LISPRO 100 UNIT/ML 3 ML VIAL SUBCUT SCH ×2 (07:00→13:39)
[2019-11-21 09:20] LABS: FREE T3 2.64 pg/mL (2.77-5.27); FREE T4 (FREE THYROXINE) 1.03 ng/dL (0.78-2.19)
--- NOTE | 2019-11-21 09:56 | EKG REPORT ---
SEVERITY:- NORMAL ECG - SINUS RHYTHM : Confirmed by: Rufus Ruiz MD 21-Nov-2019 09:55:30
[2019-11-21] MEDS ORDERED: INSULIN GLARGINE,HUM.REC.ANLOG 1,000 UNIT/10 ML VIAL SUBCUT SCH (10:00)
[2019-11-21] MEDS ORDERED: ASPIRIN 81 MG TABLET, ENT COATED PO SCH (10:00)
[2019-11-21] MEDS ORDERED: IRON SUCROSE COMPLEX INJ/PF 100 MG/5 ML SDV IV SCH (10:00)
[2019-11-21] MEDS ORDERED: IRON POLYSACCHARIDES COMPLEX 150 MG CAPSULE PO SCH (10:00)
--- NOTE | 2019-11-21 11:59 | PDOC DISCHARGE SUMMARY ---
Impression - Admit/DC Date/PCP Admission Date/Primary Care Provider: 11/21/19 00:53 NANDO FLYNN PA-C Discharge Date: 11/21/19 - Discharge Diagnosis (1) Chest pain Is this a current diagnosis for this admission?: Yes (2) Iron deficiency anemia Is this a current diagnosis for this admission?: Yes (3) Diabetes Is this a current diagnosis for this admission?: Yes - Additional Information Discharge Diet: Cardiac Referrals: NANDO FLYNN PA-C [Primary Care Provider] - Follow up as needed LIBIA OGLESBY MD [ACTIVE PROVISIONAL STAFF] - Prescriptions: Nitroglycerin [Nitrostat 0.4 mg (1/150 Gr) Tabs 25/Bottle] 1 tab SL Q5MP PRN #1 bottle PRN Reason: Iron Polysaccharides Complex [Nu-Iron 150 Capsule] 150 mg PO DAILY #30 capsule Home Medications: Aspirin [Ecotrin 81 mg EC Tablet] 81 mg PO DAILY 12/09/11 Atorvastatin Calcium [Lipitor 40 mg Tablet] 40 mg PO QHS 12/09/11 Celecoxib [Celebrex 200 mg Capsule] 200 mg PO DAILY 12/09/11 Clopidogrel Bisulfate [Plavix 75 mg Tablet] 75 mg PO DAILY 12/09/11 Duloxetine HCl [Cymbalta 30 mg Capsule.dr] 120 mg PO DAILY 12/09/11 Insulin Aspart [Novolog] 30 unit SQ AC 12/09/11 Insulin Glargine,Hum.rec.anlog [Lantus Insulin 100 Unit/mL Insulin Pen] 80 unit SQ BID 12/09/11 Levothyroxine Sodium [Synthroid 0.088 mg Tablet] 88 mcg PO DAILY 12/09/11 Lisinopril [Prinivil 40 mg Tablet] 40 mg PO DAILY 12/09/11 Zolpidem Tartrate [Edluar SL 10 mg Tablet] 10 mg PO QHS 12/09/11 Butalb/Acetaminophen/Caffeine [Fioricet (50-325-40 mg) Tablet] 1 - 2 tab PO Q4H PRN 09/17/12 Canagliflozin [Invokana] 1 tab PO DAILY 12/16/14 Clonidine HCl [Clonidine HCl ER] 0.1 mg PO QHS 12/16/14 Liraglutide [Victoza 2-Conner] 0.6 mg SQ DAILY 12/16/14 Aa8/A-Carnit/Grap/[place]/[id number] [Gabadone Capsule] 1 each PO BID 10/26/15 Iron Polysaccharides Complex [Nu-Iron 150 Capsule] 150 mg PO DAILY #30 capsule 11/21/19 Nitroglycerin [Nitrostat 0.4 mg (1/150 Gr) Tabs 25/Bottle] 1 tab SL Q5MP PRN #1 bottle 11/21/19 History of Present Illiness History of Present Illness: MARY BRAVO is a 58 year old female with a past medical history of hypertension, insulin-dependent diabetes, dyslipidemia, obesity, hypothyroidism, depression, anxiety and chest wall pain since 2011. 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 Initial work-up is unremarkable with exception to a microcytic anemia with a hemoglobin of 10 and hyperglycemia of 176. Denying recent cardiac stress test she is referred to the hospitalist for observation. Hospital Course Hospital Course: Patient was evaluated for chest pain. Chest pain seems to be exertional though she states it does not improve with rest. She does however endorse improvement with nitroglycerin. She endorses some paresthesias in her face and left shoulder. However she does endorse history of cervical spinal disease as well as a prior stroke that may contribute to her paresthesias. It is possible that her chest pain is due to stable angina. Today she states that the pain is about a 1/5. Troponins were negative x3. EKG was completely normal with no evidence of ischemia. Chest x-ray was also normal. Patient states that she had seen Dr. Oglesby [cardiology] on Friday who had scheduled her for a stress test and echocardiogram in the outpatient setting. As patient is certainly not having any ACS currently and she is stable without troponin leak and near resolution of chest pain, I will discharge patient with some nitroglycerin tablets to be used as needed and have her follow-up to get stress test done outpatient which has been scheduled by her director of quality. Patient also diagnosed with iron deficiency anemia and has been given some IV iron and being discharged with oral iron supp lements. Physical Exam Vital Signs: Temp Pulse Resp BP Pulse Ox 97.3 F 91 15 134/64 H 95 05/10/20 07:43 11/21/19 07:43 11/21/19 07:43 11/21/19 07:43 11/21/19 07:43 Intake & Output 11/20/19 11/21/19 11/22/19 06:59 06:59 06:59 Intake Total 200 Output Total 1 Balance 199 Weight 94.3 kg General appearance: PRESENT: no acute distress, cooperative Respiratory exam: PRESENT: unlabored Neurological exam: PRESENT: alert, awake Results Laboratory Results: WBC 7.3 10^3/uL (4.0-10.5) 11/20/19 21:37 RBC 4.47 10^6/uL (3.72-5.28) 11/20/19 21:37 Hgb 10.0 g/dL (12.0-15.5) L 11/20/19 21:37 Hct 30.4 % (36.0-47.0) L 11/20/19 21:37 MCV 68 fl (80-97) L 11/20/19 21:37 MCH 22.3 pg (27.0-33.4) L 11/20/19 21:37 MCHC 32.7 g/dL (32.0-36.0) 11/20/19 21:37 RDW 17.0 % (11.5-14.0) H 11/20/19 21:37 Plt Count 258 10^3/uL (150-450) 11/20/19 21:37 Lymph % (Auto) 34.1 % (13-45) 11/20/19 21:37 Rabun % (Auto) 7.7 % (3-13) 11/20/19 21:37 Eos % (Auto) 3.9 % (0-6) 11/20/19 21:37 Baso % (Auto) 0.5 % (0-2) 11/20/19 21:37 Reticulocyte # 0.073 10^6/uL (0.028-0.122) 11/21/19 00:52 Absolute Neuts (auto) 3.9 10^3/uL (1.7-8.2) 11/20/19 21:37 Absolute Lymphs (auto) 2.5 10^3/uL (0.5-4.7) 11/20/19 21:37 Absolute Monos (auto) 0.6 10^3/uL (0.1-1.4) 11/20/19 21:37 Absolute Eos (auto) 0.3 10^3/uL (0.0-0.6) 11/20/19 21:37 Absolute Basos (auto) 0.0 10^3/uL (0.0-0.2) 11/20/19 21:37 Seg Neutrophils % 53.8 % (42-78) 11/20/19 21:37 Retic Count (auto) 1.53 % (0.66-2.85) 11/21/19 00:52 PT 12.7 SEC (11.4-15.4) 11/20/19 21:37 INR 0.95 11/20/19 21:37 Sodium 135.0 mmol/L (137-145) L 11/20/19 21:37 Potassium 4.4 mmol/L (3.6-5.0) 11/20/19 21:37 Chloride 101 mmol/L (98-107) 11/20/19 21:37 Carbon Dioxide 26 mmol/L (22-30) 11/20/19 21:37 Anion Gap 8 (5-19) 11/20/19 21:37 BUN 17 mg/dL (7-20) 11/20/19 21:37 Creatinine 0.68 mg/dL (0.52-1.25) 11/20/19 21:37 Est GFR ( Amer) > 60 (>60) 11/20/19 21:37 Est GFR (MDRD) Non-Af > 60 (>60) 11/20/19 21:37 Glucose 172 mg/dL (75-110) H 11/20/19 21:37 POC Glucose 172 mg/dL (70-110) H 11/21/19 11:17 Hemoglobin A1c % 9.2 % (4.7-6.0) H 11/21/19 00:52 Calcium 10.0 mg/dL (8.4-10.2) 11/20/19 21:37 Iron 30.1 ug/dL (37-170) L 11/21/19 00:52 TIBC 435 ug/dL (250-450) 11/21/19 00:52 % Saturation 7 % 11/21/19 00:52 Transferrin 340.58 mg/dL (206.00-381.00) 11/21/19 00:52 Ferritin 6.24 ng/mL (11.1-264.0) L 11/21/19 00:52 Total Bilirubin 0.3 mg/dL (0.2-1.3) 11/20/19 21:37 Direct Bilirubin 0.0 mg/dL (0.0-0.4) 11/20/19 21:37 Neonat Total Bilirubin Not Reportable 11/20/19 21:37 Neonat Direct Bilirubin Not Reportable 11/20/19 21:37 Neonat Indirect Bili Not Reportable 11/20/19 21:37 AST 18 U/L (14-36) 11/20/19 21:37 ALT 17 U/L (<35) 11/20/19 21:37 Alkaline Phosphatase 71 U/L (38-126) 11/20/19 21:37 Creatine Kinase 52 U/L (30-135) 11/20/19 21:37 CK-MB (CK-2) 0.56 ng/mL (<4.55) 11/20/19 21:37 Troponin I < 0.012 ng/mL 11/21/19 07:52 Total Protein 6.3 g/dL (6.3-8.2) 11/20/19 21:37 Albumin 3.9 g/dL (3.5-5.0) 11/20/19 21:37 Vitamin B12 375.0 pg/mL (239-931) 11/21/19 00:52 Folate 18.10 ng/mL (>2.76) 11/21/19 00:52 TSH 0.27 uIU/mL (0.47-4.68) L 11/21/19 00:52 Free T4 1.03 ng/dL (0.78-2.19) 11/21/19 07:52 Free T3 pg/mL 2.64 pg/mL (2.77-5.27) L 11/21/19 07:52 11/20/19 11/21/19 11/21/19 21:37 00:34 07:52 CK-MB (CK-2) 0.56 Troponin I < 0.012 < 0.012 < 0.012 Impressions: Chest X-Ray 11/20/19 21:21 IMPRESSION: No acute disease. copyright 2011 [employer]- All Rights Reserved Plan Time Spent: Less than 30 Minutes Stroke Is this a Stroke Patient?: No Acute Heart Failure - Is this a Heart Failure Patient?: No
[2019-11-21 13:37] VITALS: BP 107/56
[2019-11-21] MEDS: IRON SUCROSE COMPLEX 300 MG in NORMAL SALINE 250 ML IV SCH ×2 (13:41→13:49)
[2019-11-21] MEDS ORDERED: ATORVASTATIN CALCIUM 40 MG TABLET PO SCH (22:00)
== END 2019-11-21 16:00 | disposition home or self-care (01) ==
LOC: ER 21:05 → EH 11-21 00:53 → 4N 11-21 02:27
PROVIDERS: ADMIT Internal Medicine; ATTEND Internal Medicine
DX: R07.89 Other chest pain (principal); E11.65 Type 2 diabetes mellitus with hyperglycemia; D50.9 Iron deficiency anemia, unspecified; I10 Essential (primary) hypertension; E78.5 Hyperlipidemia, unspecified; F32.9 Major depressive disorder, single episode, unspecified; R20.2 Paresthesia of skin; M48.8X2 Other specified spondylopathies, cervical region; Z79.899 Other long term (current) drug therapy; Z86.73 Personal history of transient ischemic attack (TIA), and cerebral infarction without residual deficits; Z79.4 Long term (current) use of insulin; Z79.82 Long term (current) use of aspirin; Z79.890 Hormone replacement therapy; Z79.02 Long term (current) use of antithrombotics/antiplatelets; Z90.49 Acquired absence of other specified parts of digestive tract; Z79.1 Long term (current) use of non-steroidal anti-inflammatories (NSAID)
CPT/HCPCS: 93005; 99285; 36415 ×2; 84439; 82553; 82962; 82607; 82550; 82728; 82746; 83540; 83550; 84443; 85025; 85610; 85045; 80053; 84484 ×2; 84481; 83036; 84466; 71045; 93010; G0378 ×2; J1815; J1756; J7050

== ENCOUNTER 2020-03-15 14:23 | Emergency (ER) | payer OTHER ==
[2020-03-15] MEDS ORDERED: RINGERS SOLUTION,LACTATED 1,000 ML IV ONE (15:10)
[2020-03-15] MEDS ORDERED: ONDANSETRON HCL INJ/PF 4 MG/2 ML SDV IV ONE (15:10)
--- NOTE | 2020-03-15 15:11 | ER Document Report ---
ED GI/ - General Chief Complaint: Flu Symptoms Stated Complaint: FEVER/CHILLS/NAUSEA/VOMITING Time Seen by Provider: 03/15/20 14:43 Primary Care Provider: NANDO FLYNN PA-C [Primary Care Provider] - Follow up as needed Mode of Arrival: Ambulatory Information source: Patient Notes: 59-year-old female past medical history significant for hypertension, hyperlipidemia, diabetes, psoriatic arthritis, reflux, hypertension, hypothyroidism presents to the emergency room complaining of nausea, vomiting, and diarrhea for the past 3 days. Patient states that started 2 days after eating a broccoli and cheese baked potato from [employer]. States has been running fevers as high as 101.8. Has been taking Tylenol which is helped with the fever. Did not take any medications today. Nobody else at home is ill. Denies any recent travel. Denies any COVID-19 exposure. Has not been taking any medications for the diarrhea or the vomiting. Complains of multiple episodes of watery diarrhea with multiple episodes of vomiting. States is unable to tolerate anything p.o. Is also complaining of some generalized abdominal cramping for the past 4 days. TRAVEL OUTSIDE OF THE [place] IN LAST 30 DAYS: No - Related Data Allergies/Adverse Reactions: codeine [Codeine] Allergy (Verified 03/15/20 15:08) Nausea oxycodone [Oxycodone] Allergy (Verified 03/15/20 15:08) Nausea Sulfa (Sulfonamide Antibiotics) Allergy (Verified 03/15/20 15:08) rash Past Medical History - General Information source: Patient - Social History Smoking Status: Never Smoker Frequency of alcohol use: None Family History: Reviewed & Not Pertinent - Past Medical History Cardiac Medical History: Reports: Hx Hypercholesterolemia, Hx Hypertension Denies: Hx Coronary Artery Disease, Hx Heart Attack Pulmonary Medical History: Reports: Hx Bronchitis, Hx Pneumonia Denies: Hx Asthma, Hx COPD, Hx Tuberculosis Neurological Medical History: Reports: Hx Cerebrovascular Accident - 2001. 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 Denies: Hx Pacemaker - Immunizations Hx Diphtheria, Pertussis, Tetanus Vaccination: Yes Review of Systems - Review of Systems Constitutional: Fever EENT: No symptoms reported Cardiovascular: No symptoms reported Respiratory: No symptoms reported Gastrointestinal: Abdominal pain, Diarrhea, Nausea, Vomiting Genitourinary: No symptoms reported Musculoskeletal: No symptoms reported Skin: No symptoms reported Neurological/Psychological: No symptoms reported -: Yes All other systems reviewed and negative Physical Exam - Vital signs Vitals: Temp Pulse Resp BP Pulse Ox 97.6 F 107 H 18 132/67 H 100 03/15/20 14:41 03/15/20 14:41 03/15/20 14:41 03/15/20 14:41 03/15/20 14:41 - General General appearance: Appears well, Alert In distress: Mild - Respiratory Respiratory status: No respiratory distress Chest status: Nontender Breath sounds: Normal Chest palpation: Normal - Cardiovascular Rhythm: Tachycardia Heart sounds: Normal auscultation Murmur: No Friction rub: No Gallop: None auscultated - Abdominal Inspection: Normal Distension: No distension Bowel sounds: Normal Tenderness: Nontender Organomegaly: No organomegaly - Back Back: Normal, Nontender - Neurological Neuro grossly intact: Yes Cognition: Normal Orientation: AAOx4 [place] Coma Scale Eye Opening: Spontaneous [place] Coma Scale Verbal: Oriented [place] Coma Scale Motor: Obeys Commands Leobardo Coma Scale Total: 15 Speech: Normal Motor strength normal: LUE, RUE, LLE, RLE Sensory: Normal - Skin Skin Temperature: Warm Skin Moisture: Dry Skin Color: Normal Course - Re-evaluation Re-evalutation: 03/15/20 16:02 Patient was evaluated during the global COVID-19 pandemic and that diagnosis was suspected/considered upon their initial presentation. Their evaluation, treatment and testing was consistent with current guidelines for patients who presents with complaints or systems that may be related to COVID-19. 03/15/20 18:38 Patient is resting comfortably has only had one episode of diarrhea since arrival to the emergency room. She is able to tolerate p.o. fluids without difficulty. Vital signs are stable. All test results were reviewed with patient. Negative CT. Labs are stable. Will send stool for stool studies. Patient counseled on a clear liquid diet for the next 24 hours. O [id number] Imodium as directed for diarrhea. Recheck with your primary care physician if not improving in 2 days. Patient was given strict return to the emergency room guidelines. Return for any new or worsening symptoms. All questions were answered. Patient verbalized understanding and agrees with plan of care. 03/15/20 19:24 - Vital Signs Vital signs: Temp Pulse Resp BP Pulse Ox 97.6 F 94 16 130/84 H 100 03/15/20 14:41 03/15/20 19:12 03/15/20 19:12 03/15/20 19:12 03/15/20 19:12 - Laboratory Result Diagrams: 03/15/20 15:33 03/15/20 15:33 Laboratory results interpreted by me: 03/15/20 03/15/20 03/15/20 15:33 15:33 15:33 RBC 5.50 H MCV 70 L MCH 23.6 L RDW 19.3 H Lymph % (Auto) 7.6 L Seg Neutrophils % 87.0 H Sodium 133.4 L BUN 22 H Est GFR (MDRD) Non-Af 54 L Glucose 241 H Calcium 10.5 H Urine Protein 100 H Urine Glucose (UA) >=500 H Urine Ketones 20 H Discharge - Discharge Clinical Impression: Abdominal pain of unknown etiology Diarrhea Qualifiers: Diarrhea type: unspecified type Qualified Code(s): R19.7 - Diarrhea, unspecified Condition: Stable Disposition: HOME, SELF-CARE Instructions: COVID-19 Guidance for Persons Under Investigation, Abdominal Pain ([facility]), Diarrhea, Nonspecific ([facility]) Additional Instructions: Clear liquid diet for the next 24 hours. [id number] Imodium as directed. You have been tested for COVID. You will need to self quarantine for 14 days unless you get a negative test result prior to that. Recheck with primary care physician if not improving in 2 to 3 days. Return to the emergency room for any new or worsening symptoms. Forms: Return to Work Referrals: NANDO FLYNN PA-C [Primary Care Provider] - Follow up as needed
[2020-03-15 16:09] LABS: ABSOLUTE LYMPHOCYTES (AUTO) 0.5 10^3/uL (0.5-4.7); ABSOLUTE MONOCYTES (AUTO) 0.3 10^3/uL (0.1-1.4); ABSOLUTE NEUT (AUTO) 5.4 10^3/uL (1.7-8.2); BASOPHILS % (AUTO) 0.2 % (0-2); HEMATOCRIT 38.4 % (36.0-47.0); LYMPHOCYTES % (AUTO) 7.6 % (13-45); MEAN CORPUSCULAR HEMOGLOBIN 23.6 pg (27.0-33.4); MEAN CORPUSCULAR HGB CONC 33.9 g/dL (32.0-36.0); MEAN CORPUSCULAR VOLUME 70 fl (80-97); MONOCYTES % (AUTO) 5.2 % (3-13); PLATELET COUNT 255 10^3/uL (150-450); RED CELL DISTRIBUTION WIDTH 19.3 % (11.5-14.0); TOTAL CELLS COUNTED % (AUTO) 100 %; WHITE BLOOD COUNT 6.2 10^3/uL (4.0-10.5)
[2020-03-15 16:30] LABS: ALBUMIN 4.5 g/dL (3.5-5.0); ALKALINE PHOSPHATASE 95 U/L (38-126); ANION GAP 12 (5-19); ASPARTATE AMINO TRANSFERASE 35 U/L (14-36); BILIRUBIN,DIRECT 0.3 mg/dL (0.0-0.4); BILIRUBIN,TOTAL 0.7 mg/dL (0.2-1.3); BLOOD UREA NITROGEN 22 mg/dL (7-20); CALCIUM 10.5 mg/dL (8.4-10.2); CARBON DIOXIDE 23 mmol/L (22-30); CHLORIDE 98 mmol/L (98-107); GLUCOSE 241 mg/dL (75-110); POTASSIUM 4.1 mmol/L (3.6-5.0); TOTAL PROTEIN 7.6 g/dL (6.3-8.2)
[2020-03-15 17:22] LABS: APPEARANCE,URINE CLOUDY; BILIRUBIN,URINE NEGATIVE (NEGATIVE); COLOR,URINE AMBER; GLUCOSE, URINE >=500 mg/dL (NEGATIVE); KETONES,URINE 20 mg/dL (NEGATIVE); LEUKOCYTE ESTERASE,URINE NEGATIVE (NEGATIVE); NITRITE,URINE NEGATIVE (NEGATIVE); PROTEIN,URINE 100 mg/dL (NEGATIVE); URINE SPECIFIC GRAVITY 1.029; UROBILINOGEN,URINE NEGATIVE mg/dL (<2.0)
--- NOTE | 2020-03-15 18:29 | RADIOLOGY REPORT (SQ) ---
EXAM DESCRIPTION: CT ABD/PELVIS WITH IV ONLY IMAGES COMPLETED DATE/TIME: 03/15/2020 5:02 pm REASON FOR STUDY: abdominal pain. Right flank pain. COMPARISON: None. TECHNIQUE: CT scan of the abdomen and pelvis performed using helical scanning technique with dynamic intravenous contrast injection. No oral contrast. Images reviewed with lung, soft tissue, and bone windows. Reconstructed coronal and sagittal MPR images reviewed. Delayed images for evaluation of the urinary system also acquired. All images stored on PACS. All CT scanners at this facility use dose modulation, iterative reconstruction, and/or weight based d osing when appropriate to reduce radiation dose to as low as reasonably achievable (ALARA). [facility]: Dose Right [facility]: CareDose [facility]: Dose Right [facility]: Teradose 4D [facility]: [employer] CONTRAST TYPE AND DOSE: contrast/concentration: Isovue 350.00 mmol/ml; Total Contrast Delivered: 100 .0 ml; Total Saline Delivered: 72.0 ml RENAL FUNCTION: GFR > 60. RADIATION DOSE: CT Rad equipment meets quality standard of care and radiation dose reduction techniq ues were employed. CTDIvol: 15.0 - 18.9 mGy. DLP: 3003 mGy-cm.. LIMITATIONS: None. FINDINGS: LOWER CHEST: No significant findings. No nodules or infiltrates. LIVER: Liver has normal size and contour. Mild diffuse hepatic steatosis. No focal hepatic mass. H epatic and portal veins are patent. No biliary ductal dilation. SPLEEN: Normal size. No focal lesions. PANCREAS: No masses. No significant calcifications. No adjacent inflammation or peripancreatic fluid collections. Pancreatic duct not dilated. GALLBLADDER: Surgically absent. ADRENAL GLANDS: No significant masses or asymmetry. RIGHT KIDNEY AND URETER: No solid masses. No significant calcifications. No hydronephrosis or hyd roureter. LEFT KIDNEY AND URETER: No solid masses. No significant calcifications. No hydronephrosis or hydr oureter. AORTA AND VESSELS: No aneurysm. No dissection. Renal arteries, SMA, celiac without stenosis. RETROPERITONEUM: No retroperitoneal adenopathy, hemorrhage or masses. BOWEL AND PERITONEAL CAVITY: No masses or inflammatory changes. No free fluid or peritoneal masses. APPENDIX: Normal. PELVIS: No mass. No free fluid. Normal bladder. ABDOMINAL WALL: No masses. No hernias. BONES: No significant or acute findings. OTHER: No other significant finding. IMPRESSION: No acute abnormality in the abdomen or pelvis to explain the patient's symptoms. No faviola al or ureteral calculi. No hydronephrosis. Appendix is normal. TECHNICAL DOCUMENTATION: JOB ID: [id number] Quality ID # [id number]: Final reports with documentation of one or more dose reduction techniques (e.g., Au tomated exposure control, adjustment of the mA and/or kV according to patient size, use of iterative reconstruction technique) 2010 [employer]- All Rights Reserved Reading location - IP/workstation name: [email or web address]
[2020-03-15 19:14] VITALS: BP 130/84
[2020-03-15 20:20] LABS: C DIFFICILE GDH NEGATIVE (NEGATIVE)
== END 2020-03-15 19:12 | disposition home or self-care (01) ==
LOC: ER 14:23
DX: R10.9 Unspecified abdominal pain (principal); R19.7 Diarrhea, unspecified; R50.9 Fever, unspecified; R11.2 Nausea with vomiting, unspecified; Z20.828 Contact with and (suspected) exposure to other viral communicable diseases; I10 Essential (primary) hypertension; E78.5 Hyperlipidemia, unspecified; E11.9 Type 2 diabetes mellitus without complications; Z88.6 Allergy status to analgesic agent; Z88.2 Allergy status to sulfonamides
CPT/HCPCS: 99285; 96361; 96374; 36415; 87045; 89055; 87205; 87209; 83690; 87177; 85025; 87635; 80053; 81001; 87324; 87449; 74177; J2405; J7120; C9803; 87077